=== PATIENT | male | born 1990 | race Caucasian/White ===

== ENCOUNTER 2016-07-16 14:09 | Day surgery (SDC) | payer OTHER ==
[~2016-07-16] VITALS: Ht 193 cm; Wt 121.9 kg
[2016-07-16 15:07] VITALS: Ht 193 cm; Wt 121.9 kg
[2016-07-16] MEDS ORDERED: [UNRECOGNIZED DRUG - CODE] PO (15:14)
[2016-07-16 15:39] VITALS: BP 128/66; PULSE 84; RESP 18
[2016-07-16] MEDS ORDERED: MIDAZOLAM 1 MG/ML 2 ML INJ ONE ×2 (16:20)
[2016-07-16] MEDS ORDERED: PROPOFOL 20 ML ONE (16:20)
[2016-07-16] MEDS ORDERED: FENTAnyl 50 MCG/ML VIAL ONE (16:20)
--- NOTE | 2016-07-16 19:10 | GILP ---
DATE OF PROCEDURE: 07/16/2016 DATE: 07/16/2016 NAME OF PROCEDURE: Colonoscopy with biopsy. SURGEON: Jaimie Kramer MD HISTORY AND INDICATIONS: The patient is being evaluated for changes in bowel habits and abdominal p ain. PREMEDICATION: Monitored anesthesia care by anesthesiologist. INSTRUMENT USED: Olympus colonoscope. PREPARATION: Adequate. TECHNIQUE: After informed consent, with the patient/relatives understanding the procedure, its indic ations potential risks and complications, including but not limited to: allergic reaction, bleeding, perforation, infection, missed lesions and, after all pertinent questions were answered to the sushant ent's satisfaction, the patient/relatives signed the witnessed informed consent. Following this, premedication was administered slowly IV push by under careful cardiovascular and re spiratory monitoring with pulse oximetry, automatic blood pressure and boilermaker mechanic. Once the sedati ve effect was achieved, the patient was placed in the left lateral decubitus position, digital recta l examination was performed. The colonoscope was then introduced and advanced under visual control throughout all segments of the colon including: the rectum, sigmoid, descending colon, splenic flexu re, transverse colon, hepatic flexure, ascending colon and finally reaching the cecum which was chavez rly identified by transillumination, finger indentation and the ileocecal valve. Careful examinatio n of the mucosa of the lower gastrointestinal tract both on insertion as well as withdrawal of the i nstrument disclosed the following findings: Rectal Examination: No evidence of perirectal disease, no masses. Colonic Mucosa: The colonic mucosa is remarkable for erythema, edema, and friability of the mucosa of the rectum to approximately 15 cm. Multiple biopsies were obtained. The remainder of colonic mu cosa is essentially unremarkable. The terminal ileum was reached and the ileocecal valve was reache d and terminal ileum entered and appears unremarkable. Biopsies were obtained randomly in the right and left side of the colon. Moderate-sized internal hemorrhoids are noted on withdrawal of the ins trument through the anal canal. The instrument was then withdrawn, the patient tolerated the procedure well and was transferred out of the [facility] awake and in good condition to continue recovery under observation. IMPRESSION: 1. Proctitis to 15 cm. Biopsies obtained. Doubt preparation artifact. 2. Otherwise, normal colonic mucosa on terminal ileum. Random biopsies of the right and left side of the colon were obtained. 3. Moderate sized internal hemorrhoids. PLAN: The patient will be continued on present regimen. Pathology will be reviewed as soon as nuno luu. Further recommendations will depend on the patient's clinical course as well as review of bi opsies. Dictated By: JAIMIE KRAMER MS/VIDHI Conf#: [id number] DID#: [id number] CC: JAIMIE KRAMER;*EndCC*
== END 2016-07-16 18:41 | disposition home or self-care (01) ==
LOC: GIL 14:09
PROVIDERS: ATTEND Internal Medicine Gastroenterology
DX: K62.89 Other specified diseases of anus and rectum (principal); K64.8 Other hemorrhoids; E66.9 Obesity, unspecified; Z68.32 Body mass index [BMI] 32.0-32.9, adult
CPT/HCPCS: 45380; 88305; J2250; J3010; Z7610